=== PATIENT | female | born 1955 | race Caucasian/White ===

== ENCOUNTER 2020-11-23 09:03 | Day surgery (SDC) | payer MEDICARE, MEDICAID ==
[~2020-11-23] VITALS: Ht 170.2 cm; Wt 81.8 kg
[2020-11-23] MEDS ORDERED: CYAN500T18 PO (09:46)
[2020-11-23] MEDS ORDERED: APIX5TAB PO (09:46)
[2020-11-23] MEDS ORDERED: OMEP-110 PO (09:46)
[2020-11-23] MEDS ORDERED: MULT1TAB58 PO (09:46)
[2020-11-23] MEDS ORDERED: METO50TA82 PO (09:46)
[2020-11-23] MEDS ORDERED: CHOL10003 PO (09:46)
[2020-11-23 09:49] VITALS: BP 129/83
[2020-11-23 10:14] LABS: ANION GAP 3 mmol/L (5-15); CALCIUM 9.4 mg/dL (8.5-10.1); CHLORIDE 111 mmol/L (98-107)
[2020-11-23 10:15] LABS: CREATININE 0.78 mg/dL (0.55-1.02)
[2020-11-23] MEDS ORDERED: PROPOFOL 10 MG/ML, 20ML ONE (10:31)
== END 2020-11-23 12:08 | disposition home or self-care (01) ==
LOC: CACL 09:03
PROVIDERS: ATTEND Internal Medicine Cardiovascular Disease
DX: I48.19 Other persistent atrial fibrillation (principal); J44.9 Chronic obstructive pulmonary disease, unspecified; E78.2 Mixed hyperlipidemia; Z79.01 Long term (current) use of anticoagulants; Z79.899 Other long term (current) drug therapy; Z86.010 Personal history of colon polyps; Z99.81 Dependence on supplemental oxygen
CPT/HCPCS: 36415; 80048; 92960; 93005; J2704